=== PATIENT | female | born 1950 | race African-American/Black ===

== ENCOUNTER 2016-11-29 18:21 | Emergency (ER) | payer OTHER, MEDICAID ==
[~2016-11-29] VITALS: Ht 172.7 cm; Wt 137.0 kg
[~2016-11-29 18:21] MED LIST: AMLO5TAB4 PO; COLE3.75 PO; IPRA4AER IH; METF10002 PO; OMEP20CA10 PO; SINGULAIR PO; SITA50TA3 PO; SYMBICORT PO
[2016-11-29] MEDS ORDERED: BACLOFEN 10MG TABLET PO ONE (19:00)
[2016-11-29 22:07] VITALS: BP 139/84
== END 2016-11-29 22:09 | disposition home or self-care (01) ==
LOC: ER 19:13
DX: M54.32 Sciatica, left side (principal); M48.00 Spinal stenosis, site unspecified; I10 Essential (primary) hypertension; J45.909 Unspecified asthma, uncomplicated; Z88.2 Allergy status to sulfonamides; Z88.5 Allergy status to narcotic agent
CPT/HCPCS: 72131; 93971; 99284

== ENCOUNTER 2017-01-16 10:41 | Emergency (ER) | payer OTHER, MEDICAID ==
[~2017-01-16] VITALS: Ht 172.7 cm; Wt 129.0 kg
[2017-01-16 15:57] LABS: CHLORIDE 108 mEq/L (98-107)
[2017-01-16 16:00] LABS: BASOPHILS % 0.9 % (0.0-2.0); EOSINOPHILS % 1.4 % (0.0-5.0); HEMATOCRIT. 39.4 % (36.0-48.0); HEMOGLOBIN. 12.7 g/dL (12.0-16.0); LYMPHOCYTES % 40.7 % (20.0-50.0); MEAN CORPUSCULAR HEMOGLOBIN 25.6 pg (28.0-32.0); MEAN CORPUSCULAR VOLUME 79.3 fL (81.0-99.0); MEAN PLATELET VOLUME 9.1 fl (7.4-10.4); MONOCYTES % 5.6 % (2.0-8.0); NEUTROPHILS % 51.4 % (40.0-76.0); PLATELET 224 x1000/uL (130-400); RED BLOOD CELL COUNT 4.97 mill/uL (4.2-5.4); RED CELL DISTRIBUTION WIDTH 15.8 % (11.6-14.6)
[2017-01-16 16:01] LABS: PROTHROMBIN TIME 10.9 sec (9.4-11.6)
[2017-01-16 16:07] LABS: CARBON DIOXIDE 27 mEq/L (21-32)
[2017-01-16 17:25] LABS: CLARITY URINE TURBID (CLEAR); COLOR URINE YELLOW (YELLOW); GLUCOSE URINE NEGATIVE (NEGATIVE); KETONES URINE 1+ (NEGATIVE); LEUKOCYTE ESTERASE URINE 2+ (NEGATIVE); NITRITE URINE NEGATIVE (NEGATIVE); OCCULT BLOOD URINE NEGATIVE (NEGATIVE); PH URINE 6.5 (4.5-8.0); PROTEIN URINE NEGATIVE (NEGATIVE); SPECIFIC GRAVITY URINE 1.012 (1.005-1.030); UROBILINOGEN URINE 0.2 E.U./dL (0.2-1.0)
[2017-01-16 17:41] LABS: *AMPHETAMINES SCREEN URINE NEGATIVE (NEGATIVE); *BARBITURATES SCREEN URINE NEGATIVE (NEGATIVE); *BENZODIAZEPINES SCREEN URINE NEGATIVE (NEGATIVE); *COCAINE SCREEN URINE NEGATIVE (NEGATIVE); CANNABINOID URINE SCREEN NEGATIVE (NEGATIVE); METHADONE URINE SCREEN NEGATIVE (NEGATIVE); OPIATES URINE SCREEN NEGATIVE (NEGATIVE); PHENCYCLIDINE URINE SCREEN NEGATIVE (NEGATIVE)
[2017-01-16 18:40] VITALS: BP 144/70
== END 2017-01-16 19:15 | disposition home or self-care (01) ==
LOC: ER 12:48
DX: N39.0 Urinary tract infection, site not specified (principal); K57.30 Diverticulosis of large intestine without perforation or abscess without bleeding; I10 Essential (primary) hypertension; E11.9 Type 2 diabetes mellitus without complications; M19.90 Unspecified osteoarthritis, unspecified site; J45.909 Unspecified asthma, uncomplicated; Z88.6 Allergy status to analgesic agent; Z90.49 Acquired absence of other specified parts of digestive tract; Z88.2 Allergy status to sulfonamides
CPT/HCPCS: 36415; 74176; 80053; 80305; 81001; 83690; 85025; 85610; 99285

== ENCOUNTER 2018-11-12 13:13 | Emergency (ER) | payer OTHER, MEDICAID ==
[~2018-11-12] VITALS: Ht 167.6 cm; Wt 136.0 kg
[~2018-11-12 13:13] MED LIST changes: +METF-416 PO; -METF10002 PO; -OMEP20CA10 PO; +OMEP20CA5 PO
[2018-11-12] MEDS ORDERED: ACETAMINOPHEN 500MG TABLET PO ONE (14:30)
[2018-11-12] MEDS ORDERED: IBUPROFEN 600MG TABLET PO ONE (16:00)
[2018-11-12 16:05] VITALS: BP 131/84
== END 2018-11-12 16:08 | disposition home or self-care (01) ==
LOC: ER 13:13
DX: R51 Headache (principal); E11.9 Type 2 diabetes mellitus without complications; J45.909 Unspecified asthma, uncomplicated; I10 Essential (primary) hypertension; I69.351 Hemiplegia and hemiparesis following cerebral infarction affecting right dominant side; Z88.2 Allergy status to sulfonamides; Z79.84 Long term (current) use of oral hypoglycemic drugs; Z88.5 Allergy status to narcotic agent; Z90.49 Acquired absence of other specified parts of digestive tract; V43.62XA Car passenger injured in collision with other type car in traffic accident, initial encounter; Y93.89 Activity, other specified; Y92.488 Other paved roadways as the place of occurrence of the external cause
CPT/HCPCS: 99284